=== PATIENT | male | born 1950 | race Two or more races ===

== ENCOUNTER 2020-06-16 11:05 | Outpatient (RCR) | payer MEDICARE, OTHER, SELFPAY ==
[2020-06-16] MEDS: COVID-19 VACC, MRNA(PFIZER)/PF 30 MCG/0.3 ML SYRINGE IM (13:46)
[2020-07-07] MEDS: COVID-19 VACC, MRNA(PFIZER)/PF 30 MCG/0.3 ML SYRINGE IM (13:38)
== END 2020-09-15 23:59 ==
LOC: IMMUN 11:05
PROVIDERS: PCP Family Medicine; Referring Provider Family Medicine; Visit Provider Family Medicine
DX: Z23 Encounter for immunization (principal)
CPT/HCPCS: 0001A; 0002A; 91300